=== PATIENT | male | born 1970 | race Caucasian/White ===

== ENCOUNTER 2020-05-14 12:07 | Day surgery (SDC) | payer OTHER ==
[~2020-05-14] VITALS: Ht 177.8 cm; Wt 124.9 kg
[~2020-05-14 12:07] MED LIST: Aspir 8181 MG; ESCI20; FENO145; GLIP5; LAMO100; Lisinopril-Hct1 EAC4; METF500; NIAC500; VENL75ER; ZOLP10
== END 2020-05-14 14:49 | disposition home or self-care (01) ==
LOC: ORSCSDS 12:07
PROVIDERS: Podiatrist Foot & Ankle Surgery
PROC: 0L8P0ZZ Division of Left Lower Leg Tendon, Open Approach (ICD-10-PCS; principal; 2020-05-14 13:45)
DX: M24.572 Contracture, left ankle (principal); E11.621 Type 2 diabetes mellitus with foot ulcer; Z79.84 Long term (current) use of oral hypoglycemic drugs; Z79.4 Long term (current) use of insulin; I10 Essential (primary) hypertension; F31.9 Bipolar disorder, unspecified; E66.01 Morbid (severe) obesity due to excess calories; Z68.39 Body mass index [BMI] 39.0-39.9, adult; Z79.899 Other long term (current) drug therapy
CPT/HCPCS: 82947; J0171; J0690; J1100; J2250; J2405; J2704; J3010; J7120